=== PATIENT | male | born 1970 | race Caucasian/White ===

== ENCOUNTER 2017-07-31 14:27 | Emergency (ER) | payer OTHER, SELFPAY ==
[2017-07-31 14:28] VITALS: BP 132/79; PULSE 100; RESP 20; TEMP 39; O2SAT 100; BMI 33.4
--- NOTE | 2017-07-31 14:44 | RAD_ITS ---
STUDY: X-RAY CHEST REASON FOR EXAM: Male, 47 years old. Congestion. Cough. Fever. TECHNIQUE: Frontal and lateral views of the chest. COMPARISON: None. FINDINGS: There are monitoring devices. The lungs are clear and expanded. There is no demonstrated pleural abnormality. Normal size heart. Normal mediastinum and vasyl. Normal visualized pulmonary arteries. Normal visualized aortic arch and descending thoracic aorta. Normal visualized thoracic spine. Normal visualized ribs, clavicles, and shoulders. There is no demonstrated abnormality of the visualized soft tissue structures of the upper abdomen. RAD/Chest PA and Lateral IMPRESSION: Normal x-ray examination of the chest. Electronically Signed: Zana Rockwell MD at 15:57 EST , Service support ,
[2017-07-31] MEDS: 0.9% Normal Saline 1,000 ML 999 ML IV (15:15)
[2017-07-31] MEDS: Ketorolac 30 MG/ML Syringe IV (15:16)
[2017-07-31 15:17] VITALS: O2SAT 97
[2017-07-31 15:24] LABS: Absolute Lymphocyte Count 0.98 X10^3/ul (0.83-4.51); Absolute Neutrophil Count 4.7 X10^3/uL (2.0-7.7); Basophil# 0.01 X10^3/uL; Basophil% 0.2 % (0-1); Eosinophil# 0.02 X10^3/uL; Eosinophils% 0.3 % (0-5); Hematocrit 46.7 % (40-54); Hemoglobin 16.3 g/dl (13.0-16.5); Lymphocyte # 0.98 X10^3/ul (4.0); Lymphocyte % 14.9 % (19-41); Mean Corp Hgb Conc 34.9 g/gl (32-36); Mean Corpuscular Volume 91.7 fL (80-94); Mean Platelet Vol. 9.6 fl (6.2-12.0); Monocyte# 0.85 X10^3/uL; Monocyte% 12.9 % (0-10); Neutrophil # 4.71 X10^3/uL (2.7-7.7); Neutrophil % 71.5 % (47-70); Platelet Count 180 K/mm3 (150-450); RBC Distribution Width SD 43.6 fl (35.1-43.9); Red Blood Count 5.09 M/mm3 (4.6-6.2); White Blood Count 6.6 K/mm3 (4.4-11.0)
[2017-07-31 15:38] LABS: POSITIVE COUNT NO; POSITIVE DIFFERENTIAL NO; POSITIVE MORPHOLOGY NO
--- NOTE | 2017-07-31 15:41 | ED.RN ---
RADHA FROM LAB CALLED WITH POSITIVE FLU B ON PT.DR. VARGAS INFORMED OF SAME.
[2017-07-31 15:50] LABS: Anion Gap 11 (5-15); BUN 12 mg/dL (7-18); Calcium,Total 8.8 mg/dL (8.5-10.1); Chloride 99 mmol/L (98-107); Creatinine, Serum 1.09 mg/dL (0.70-1.30); EST Glomerular Filtration Rate 76 mL/min (>60); Est Glom Filt Rate - Afr Amer 92 mL/min (>60); Estimated Creatinine Clearance 79.31 ml/min; Glucose 96 mg/dL (74-106); Potassium 3.9 mmol/L (3.5-5.1); Sodium Level 133 mmol/L (136-145)
--- NOTE | 2017-07-31 16:35 | ED.DCSUM_ITS ---
- ER Visit Summary Date of Service: 07/31/17 Chief Complaint: [Fever and cough] History of Present Illness: The patient is a 47 M [presents to the emergency department from urgent care with complaint of fever and cough ?2 days. Patient has had decreased p.o. intake. Patient has had headache and body aches. Cough is been nonproductive. Patient was on prednisone which she finished about 2 days ago. Patient denies any sick contacts.] Physical Examination: [HEENT-PERRLA, EOMI. Cranial nerves II through XII grossly intact. TMs clear. Mucous membranes moist. No adenopathy. Cardiovascular-regular rate and rhythm without murmur or ectopy Lungs-clear to auscultation, chest wall stable without crepitus or subcu emphysema Abdomen-normoactive bowel sounds, soft, nontender, no rebound or rigidity, no peritoneal signs. Extremities-intact ?4, normal range of motion, normal pulses, atraumatic] Test Results: [CBC with differential was normal. Chemistries were normal. Chest x-ray was normal. Influenza screen was positive for influenza B] Emergency Department Course and Treatment: [Patient received a liter normal same fluid bolus and Toradol 30 mill grams IV.] Treatment Plan: [Patient and his at this point are declining use of Tamiflu. I will write him a prescription for Tessalon Perles. Advised to push fluids and rest.] Disposition: [Discharged to home in stable condition. Advised to return if increased difficulty breathing or condition should worsen in any way.] Impression: [Influenza] This note was generated with [employer] dictation software. It may contain incorrect words, spelling, and punctuation that were not noted in review of the chart prior to signing ED Disposition - Plan for ED Patient: Chief Complaint: Cold Sx Referrals: Rik Downs III, MD [Primary Care Provider] -
--- NOTE | 2017-07-31 16:36 | ED.DEP ---
ED Disposition - Plan for ED Patient: Chief Complaint: Cold Sx Instructions: ED Flu Prescriptions: Benzonatate [Tessalon Perle] 200 mg PO TID PRN PRN #20 cap PRN Reason: Cough Ibuprofen [Motrin] 800 mg PO TID PRN PRN #20 tab PRN Reason: Fever Referrals: Rik Downs III, MD [Primary Care Provider] - 3-5 Days
[2017-07-31 17:07] VITALS: PULSE 88; RESP 8; O2SAT 94
== END 2017-07-31 17:08 | disposition home or self-care (01) ==
PROVIDERS: Emergency Provider Emergency Medicine; Family Provider Family Medicine; PCP Family Medicine
DX: J11.1 Influenza due to unidentified influenza virus with other respiratory manifestations (principal)
CPT/HCPCS: 71046; 80048; 85025; 87804; 96361; 96374; 99285; J7030; A4216